=== PATIENT | male | born 1980 | race Caucasian/White ===

== ENCOUNTER 2016-09-10 21:06 | Emergency (ER) | payer SELFPAY ==
[2016-09-10 21:51] VITALS: BP 132/92
== END 2016-09-10 22:35 | disposition home or self-care (01) ==
LOC: ED 21:06
DX: B08.8 Other specified viral infections characterized by skin and mucous membrane lesions (principal); R23.8 Other skin changes

== ENCOUNTER 2016-10-28 08:21 | Emergency (ER) | payer BC ==
[~2016-10-28] VITALS: Ht 172.7 cm; Wt 121.8 kg
[2016-10-28 08:30] VITALS: BP 132/83
== END 2016-10-28 09:27 | disposition home or self-care (01) ==
LOC: ED 08:21
DX: S43.401A Unspecified sprain of right shoulder joint, initial encounter (principal); Z88.0 Allergy status to penicillin; W18.30XA Fall on same level, unspecified, initial encounter; Y93.89 Activity, other specified; Y99.8 Other external cause status; Y92.89 Other specified places as the place of occurrence of the external cause
CPT/HCPCS: Q0092

== ENCOUNTER 2017-02-12 17:01 | Emergency (ER) | payer SELFPAY ==
[~2017-02-12] VITALS: Ht 175.3 cm; Wt 116.6 kg
[2017-02-12 19:16] VITALS: BP 140/95
== END 2017-02-12 19:16 | disposition home or self-care (01) ==
LOC: ED 17:01
DX: S22.31XA Fracture of one rib, right side, initial encounter for closed fracture (principal); Z88.0 Allergy status to penicillin; X58.XXXA Exposure to other specified factors, initial encounter; Y93.89 Activity, other specified; Y99.8 Other external cause status; Y92.89 Other specified places as the place of occurrence of the external cause
CPT/HCPCS: J1885

== ENCOUNTER 2017-08-07 15:48 | Emergency (ER) | payer SELFPAY ==
[~2017-08-07] VITALS: Ht 175.3 cm; Wt 113.8 kg
[2017-08-07 15:55] VITALS: Ht 175.3 cm; Wt 113.8 kg
[2017-08-07 19:07] VITALS: BP 153/112
== END 2017-08-07 19:07 | disposition home or self-care (01) ==
LOC: ED 15:48
DX: K11.20 Sialoadenitis, unspecified (principal); Z88.0 Allergy status to penicillin
CPT/HCPCS: J3010

== ENCOUNTER 2017-10-02 15:16 | Emergency (ER) | payer SELFPAY ==
[~2017-10-02] VITALS: Ht 175.3 cm; Wt 124.3 kg
[2017-10-02 15:22] VITALS: BP 158/87; Ht 175.3 cm; Wt 124.3 kg
== END 2017-10-02 18:01 | disposition home or self-care (01) ==
LOC: ED 15:16
DX: K11.20 Sialoadenitis, unspecified (principal); Z88.0 Allergy status to penicillin

== ENCOUNTER 2018-05-07 22:13 | Emergency (ER) | payer SELFPAY ==
[~2018-05-07] VITALS: Ht 175.3 cm; Wt 118.4 kg
[2018-05-07 22:23] VITALS: Ht 175.3 cm; Wt 118.4 kg
[2018-05-07 23:33] LABS: CALCIUM 8.5 mg/dL (8.5-10.1); CARBON DIOXIDE 25.1 mmol/L (21-32); CHLORIDE SERUM 101 mmol/L (98-107); CREATININE SERUM 1.3 mg/dL (0.7-1.3); GFR1 > 60 mL/min; GLUCOSE SERUM 154 mg/dL (74-106); POTASSIUM SERUM 3.6 mmol/L (3.5-5.1); SODIUM SERUM 136 mmol/L (136-145)
[2018-05-07 23:37] LABS: ALBUMIN 3.4 g/dL (3.4-5.0); ALKALINE PHOSPHATASE 86 U/L (46-116); ALT/SGPT 46 U/L (16-63); AMYLASE 54 U/L (25-115); AST/SGOT 26 U/L (15-37); BASOPHIL % 0.3 % (0-2); BILIRUBIN TOTAL 0.5 mg/dL (0.20-1.00); PLATELET COUNT 345 x10^3mcL (130-400); TOTAL PROTEIN, SERUM 7.1 g/dL (6.4-8.2)
[2018-05-07 23:49] LABS: FREE T4 1.14 ng/dL (0.76-1.46); FREE THYROXINE INDEX 3.2 ug/dL (1.4-4.5); T4(THYROXINE) 8.9 ug/dL (4.7-13.3)
[2018-05-08 01:29] VITALS: BP 138/80
[2018-05-08 03:37] LABS: T3 TOTAL 1.41 ng/mL
== END 2018-05-08 01:29 | disposition home or self-care (01) ==
LOC: ED 22:13
PROVIDERS: Emergency Medicine
DX: K04.7 Periapical abscess without sinus (principal); Z88.0 Allergy status to penicillin
CPT/HCPCS: 36415; 84439; Q0092

== ENCOUNTER 2018-09-25 22:18 | Emergency (ER) | payer SELFPAY ==
[~2018-09-25] VITALS: Ht 175.3 cm; Wt 126.1 kg
[2018-09-25 22:26] VITALS: Ht 175.3 cm; Wt 126.1 kg
[2018-09-26 00:51] VITALS: BP 128/65
== END 2018-09-26 00:51 | disposition home or self-care (01) ==
LOC: ED 22:18
DX: M10.022 Idiopathic gout, left elbow (principal); Z88.0 Allergy status to penicillin
CPT/HCPCS: J1885; J2270; J7512

== ENCOUNTER 2018-09-28 10:29 | Emergency (ER) | payer SELFPAY ==
[~2018-09-28] VITALS: Ht 175.3 cm; Wt 120.7 kg
[2018-09-28 10:36] VITALS: Ht 175.3 cm; Wt 120.7 kg
[2018-09-28 11:33] VITALS: BP 137/84
== END 2018-09-28 11:33 | disposition home or self-care (01) ==
LOC: ED 10:29
DX: M25.422 Effusion, left elbow (principal); Z88.0 Allergy status to penicillin; Z86.73 Personal history of transient ischemic attack (TIA), and cerebral infarction without residual deficits

== ENCOUNTER 2018-09-29 15:50 | Emergency (ER) | payer SELFPAY ==
[~2018-09-29] VITALS: Ht 175.3 cm; Wt 120.7 kg
[2018-09-29 15:55] VITALS: Ht 175.3 cm; Wt 120.7 kg
[2018-09-29 16:44] LABS: BASOPHIL % 0.4 % (0-2); PLATELET COUNT 341 x10^3mcL (130-400); RED CELL DISTRIBUTION WIDTH 13.8 % (11.5-14.5)
[2018-09-29 16:53] LABS: C REACTIVE PROTEIN 3.6 mg/dL (<=0.9); URIC ACID 7.9 mg/dL (3.5-7.2)
[2018-09-29 18:41] VITALS: BP 141/88
== END 2018-09-29 18:41 | disposition home or self-care (01) ==
LOC: ED 15:50
PROVIDERS: Emergency Medicine
DX: M25.422 Effusion, left elbow (principal); M10.022 Idiopathic gout, left elbow; Z86.73 Personal history of transient ischemic attack (TIA), and cerebral infarction without residual deficits; Z98.890 Other specified postprocedural states; Z88.0 Allergy status to penicillin
CPT/HCPCS: 36415